=== PATIENT | female | born 1995 | race Caucasian/White ===

== ENCOUNTER → 2023-07-18 | Outpatient (CLI) | payer OTHER ==
[2023-07-19 03:06] LABS: MUMPS VIRUS IGG ANTIBODY <9.0 AU/mL (Immune >10.9); RUBELLA AB IGG-REFLAB 1.72 index (Immune >0.99); RUBEOLA (MEASLES) IGG 34.6 AU/mL (Immune >16.4)
== END | disposition home or self-care (01) ==
LOC: LABMN 15:11
PROVIDERS: ATTEND Internal Medicine
DX: Z02.1 Encounter for pre-employment examination (principal)
CPT/HCPCS: 86706; 86735; 86762; 86765; 86787